=== PATIENT | male | born 1975 | race Two or more races ===

== ENCOUNTER 2025-03-10 06:47 | Day surgery (SDC) | payer OTHER ==
[2025-03-02 10:49] VITALS: BP 145/93
[~2025-03-10] VITALS: Ht 180.3 cm; Wt 56.7 kg
[2025-03-10] MEDS ORDERED: METRONIDAZOLE/SODIUM CHLORIDE 500 MG/100 ML PIGGYBACK IV ONE (07:34)
[2025-03-10] MEDS ORDERED: ENOXAPARIN SODIUM 40 MG/0.4 ML SYRINGE SUBCUTANEO ONE (07:34)
[2025-03-10] MEDS ORDERED: CEFTRIAXONE SODIUM 2,000 MG VIAL ONE (07:34)
[2025-03-10] MEDS ORDERED: PERCOCET 5-3251 EACH PO (11:31)
[2025-03-10] MEDS ORDERED: POLY119PG PO (11:32)
[2025-03-10] MEDS ORDERED: NEURONTIN300 MG PO (11:32)
[2025-03-10] MEDS ORDERED: CELEBREX200MG PO (11:32)
[2025-03-10] MEDS ORDERED: SUGAMMADEX SODIUM 200 MG/2 ML VIAL IV ONE (14:00)
== END 2025-03-10 15:00 | disposition home or self-care (01) ==
LOC: CIR.AMB 06:47
PROVIDERS: ATTEND Surgery
DX: K40.91 Unilateral inguinal hernia, without obstruction or gangrene, recurrent (principal)
CPT/HCPCS: 49651; C1781